=== PATIENT | female | born 1980 | race Caucasian/White ===

== ENCOUNTER 2016-10-17 15:15 | Emergency (ER) | payer SELFPAY ==
--- NOTE | 2016-10-17 17:27 | ED NURSING NOTES ---
Clinical Report - Nurses [facility] [address] [place] [address] 10/17/2016 15:17 Patient: TEMO HYMAN TRIAGE Triage time 1525. Acuity: LEVEL 3. Chief Complaint: NECK PAIN and (states neck pain started on right trapezius area on Thursday--now whole neck is stiff and painful "like a migraine"). 15:25. AYO COMA SCORE: Ayo Coma Scale: 15- eyes open spontaneously (4); best verbal response- oriented x 4 (5); best motor response- obeys commands (6). --15:39 Kerry Banks R.N. 15:25 10/17/16. BP: 123/78. HR: 76. RR: 18. O2 saturation: 100%. Temp: 98 F. Pain level now: 04/14. --15:39 Kerry Banks R.N. Weight: 54.4 kg stated. Height/Length: 62 inches Per Patient. BMI: 22. --15:38 Krery Banks R.N. Medications Took a muscle relaxant of husbands last nightr . --15:35 Kerry Banks R.N. alleve 2 tabs yesterday . --15:35 Kerry Banks R.N. Ice hot topicle (made it worse) . --15:35 Kerry Banks R.N. Allergies Cipro. ("feels like chest is closing up") Codeine.(rash) --15:33 Kerry Banks R.N. History Arrived by private vehicle. Historian: spouse. Accompanied by spouse. No primary care physician. Onset. (thursday). ( c/o worse pain when she ambulates, and states her mouth gets numb when she walks). She has had numbness (has it chronically with carpel tunnel). No history of recent trauma. PAST MEDICAL HX: Last normal menstrual period- 2 weeks. ( Migraines). SURGERY HX: Carpal tunnel surgery. SOCIAL HX: Light tobacco smoker (cigarette)- less than 1/2 a pack per day. Alcohol use; consumes two bottles of wine daily. History of drug use: marijuana. --15:39 Kerry Banks R.N. PROBLEMS: Migraine Headache. Hepatitis C carrier. --15:36 Kerry Banks R.N. Interventions To treatment room. --15:39 Kerry Banks R.N. PHYSICAL ASSESSMENT 15:25. Ambulatory to room. Patient gowned. GENERAL / NEURO / PSYCH: Alert. Oriented X 4. Appears in pain. RESPIRATORY: Respirations not labored. Chest nontender. CVS: Capillary refill less than 2 seconds. GI / : Abdomen soft. BACK: Limited ROM of the neck. Soft tissue tenderness. --15:39 Kerry Banks R.N. NURSING PROGRESS NOTES 15:25. Patient gowned. Head of bed elevated. Reassurance given. Patient identifiers checked. Call light placed in reach. Side rails up. Bed placed in lowest position. Patient ready for evaluation- chart flagged. --15:39 Kerry Banks R.N. 16:47 10/17/2016 Valium (Diazepam) IM 5 mg given. Given in the left ventral gluteus. Allergies verified. --16:52 Kerry Banks R.N. 16:48 10/17/2016 Toradol (Ketorolac Tromethamine) IM 60 mg given. Given in the left ventral gluteus. --16:53 Kerry Banks R.N. 17:22 10/17/16. The patient is calm and resting quietly. Overall patient status is improved- she states feels better. GENERAL / NEURO / PSYCH: Alert. Oriented X 4. RESPIRATORY: No respiratory distress. SKIN: Skin is warm and dry. --17:22 Philly Owusu R.N. 17:20 10/17/16. BP: 113/68. HR: 69. RR: 16. O2 saturation: 98% on room air. Temp: 98.1 F (oral). Pain level now: 08/15. --17:22 Philly Owusu R.N. DISPOSITION / DISCHARGE Departure time: 1738. Condition at departure: improved. No learning barriers present. Discharge instructions provided and reviewed. Reviewed medication(s) information. Prescription(s) given to the patient. Treatments reviewed (heat packs). Reviewed referral to family practice for followup. Work note given (for 2 days). Verbalized understanding. Written instructions provided. The patient was discharged home and accompanied by head strength and conditioning coach. She left the Emergency Department ambulatory and via private vehicle. Transit Manager driving. --17:43 Brenna Oneil R.N. 17:38 10/17/16. BP: 110/67. HR: 78. RR: 18. O2 saturation: 100%. Temp: 98 F. Pain level now: 01/12. --17:43 Brenna Oneil R.N. Locked/Released at 10/17/2016 17:43 by Brenna Oneil R.N.
--- NOTE | 2016-10-17 17:27 | ED CLINICAL REPORT ---
Clinical Report - Physicians/Mid Levels [facility] [address] [place] [address] 10/17/2016 15:17 Patient: TEMO HYMAN Time Seen: 16:20; initial patient contact, initial documentation, patient care assumed. Arrived- By private vehicle. Historian- patient and significant other. HISTORY OF PRESENT ILLNESS Chief Complaint: NECK PAIN. Modifying factors- worsened by rotation of the head to the right or left or neck flexion. Not relieved by anything. Onset- about 5 days ago and it is still present. It was abrupt in onset and has been constant. It is described as being severe and in the area of the left trapezius and left side of the cervical spine. The quality is noted to be "pain". No radiation. No bladder dysfunction, bowel dysfunction, sensory loss or motor loss. Additional history - awoke that morning with spasms and neck pain, and the spasms won't stop. Patient denies an injury but injury to the head or chest. No other injury. Similar symptoms previously: None. Recent medical care: Not recently seen/assessed. REVIEW OF SYSTEMS No fever, headache, sore throat, difficulty breathing or chest pain. No abdominal pain. All systems otherwise negative, except as recorded above. PAST HISTORY See nurses notes. PROBLEMS: Migraine Headache. Hepatitis C carrier. --15:36 Darren, Kerry, RSawN. SOCIAL HISTORY Light tobacco smoker. Regular alcohol use; consumes wine by the [employer]. History of occasional drug use: marijuana. No recent travel. Is a local resident. She lives with spouse. FAMILY HISTORY Negative. ADDITIONAL NOTES The nursing notes have been reviewed with agreement regarding the chief complaint, HPI, ROS, PMH and patient medications and allergies. PHYSICAL EXAM Vital Signs: 10/17/2016 15:25 BP: 123/78. HR: 76. RR: 18. O2 saturation: 100%. Temp: 98 F. Pain level now: 10/10. Have been reviewed as normal and appear to be correct. Appearance: Alert. No acute distress. HEENT: Normal external inspection. Eyes: Pupils equal, round and reactive to light. ENT: Ears normal. Pharynx normal. Neck: Neck tenderness. Abnormal inspection. Painful ROM. Moderate pain in the neck upon turning the head to the right, turning the head to the left, lifting the head, flexing the neck and extending the neck (L side). Moderate muscle spasm of the neck (L side). No vertebral tenderness. Soft tissue tenderness. No lymphadenopathy or meningeal signs. CVS: Normal heart rate and rhythm. Heart sounds normal. Pulses normal. Respiratory: No respiratory distress. Breath sounds normal. Chest nontender. Back: Normal inspection. No tenderness. Painless ROM. Skin: Skin warm and dry. Normal skin color. No rash. Normal skin turgor. Extremities: Extremities exhibit normal ROM. Extremities nontender. Neuro: Oriented X 3. Mood/affect normal. No motor deficit. No sensory deficit. PROGRESS AND PROCEDURES Patient and spouse counseled in person regarding the patient's stable condition and diagnosis. Differential Diagnosis: Other possible considerations: neck sprain, torticollis, meningitis, cervical stenosis, oa. Above considerations are based on history and physical exam. Differential diagnosis was discussed with patient. Disposition: Discharged home in good and improved condition (17:27). Condition: good and stable. CLINICAL IMPRESSION Left-sided spasmodic torticollis INSTRUCTIONS Do not work for two days. Warnings: GENERAL WARNINGS: Return or contact your physician immediately if your condition worsens or changes unexpectedly, if not improving as expected, or if other problems arise. SPECIFICALLY, return if you develop incontinence of urine (loss of bladder control). chest pain, trouble breathing, abdominal pain. Prescription Medications: Flexeril 10 mg: Take 1 orally every 8 hours as needed for muscle spasm. Dispense twenty (20). No refills. Substitution is permissible. Ultram 50 mg tablets: take 1-2 orally every 6 hours as needed for pain. Dispense twenty (20). No refills. Substitution is permissible. Follow-up: Follow up with your doctor in about five days as needed. Call for an appointment. Summary of care provided to patient. Understanding of the discharge instructions verbalized by patient. (Electronically signed by Lilliana Hardin A.R.N.P. 10/17/2016 17:54)
--- NOTE | 2016-10-17 17:27 | ED NURSING NOTES ---
Clinical Report - Nurses [facility] [address] [place] [address] 10/17/2016 15:17 Patient: TEMO HYMAN TRIAGE Triage time 1525. Acuity: LEVEL 3. Chief Complaint: NECK PAIN and (states neck pain started on right trapezius area on Thursday--now whole neck is stiff and painful "like a migraine"). 15:25. AYO COMA SCORE: Ayo Coma Scale: 15- eyes open spontaneously (4); best verbal response- oriented x 4 (5); best motor response- obeys commands (6). --15:39 Kerry Banks R.N. 15:25 10/17/16. BP: 123/78. HR: 76. RR: 18. O2 saturation: 100%. Temp: 98 F. Pain level now: 04/14. --15:39 Kerry Banks R.N. Weight: 54.4 kg stated. Height/Length: 62 inches Per Patient. BMI: 22. --15:38 Kerry Banks R.N. Medications Took a muscle relaxant of husbands last nightr . --15:35 Kerry Banks R.N. alleve 2 tabs yesterday . --15:35 Kerry Banks R.N. Ice hot topicle (made it worse) . --15:35 Kerry Banks R.N. Allergies Cipro. ("feels like chest is closing up") Codeine.(rash) --15:33 Kerry Banks R.N. History Arrived by private vehicle. Historian: spouse. Accompanied by spouse. No primary care physician. Onset. (thursday). ( c/o worse pain when she ambulates, and states her mouth gets numb when she walks). She has had numbness (has it chronically with carpel tunnel). No history of recent trauma. PAST MEDICAL HX: Last normal menstrual period- 2 weeks. ( Migraines). SURGERY HX: Carpal tunnel surgery. SOCIAL HX: Light tobacco smoker (cigarette)- less than 1/2 a pack per day. Alcohol use; consumes two bottles of wine daily. History of drug use: marijuana. --15:39 Kerry Banks R.N. PROBLEMS: Migraine Headache. Hepatitis C carrier. --15:36 Kerry Banks R.N. Interventions To treatment room. --15:39 Kerry Banks R.N. PHYSICAL ASSESSMENT 15:25. Ambulatory to room. Patient gowned. GENERAL / NEURO / PSYCH: Alert. Oriented X 4. Appears in pain. RESPIRATORY: Respirations not labored. Chest nontender. CVS: Capillary refill less than 2 seconds. GI / : Abdomen soft. BACK: Limited ROM of the neck. Soft tissue tenderness. --15:39 Kerry Banks R.N. NURSING PROGRESS NOTES 15:25. Patient gowned. Head of bed elevated. Reassurance given. Patient identifiers checked. Call light placed in reach. Side rails up. Bed placed in lowest position. Patient ready for evaluation- chart flagged. --15:39 Kerry Banks R.N. 16:47 10/17/2016 Valium (Diazepam) IM 5 mg given. Given in the left ventral gluteus. Allergies verified. --16:52 Kerry Banks R.N. 16:48 10/17/2016 Toradol (Ketorolac Tromethamine) IM 60 mg given. Given in the left ventral gluteus. --16:53 Kerry Banks R.N. 17:22 10/17/16. The patient is calm and resting quietly. Overall patient status is improved- she states feels better. GENERAL / NEURO / PSYCH: Alert. Oriented X 4. RESPIRATORY: No respiratory distress. SKIN: Skin is warm and dry. --17:22 Philly Owusu R.N. 17:20 10/17/16. BP: 113/68. HR: 69. RR: 16. O2 saturation: 98% on room air. Temp: 98.1 F (oral). Pain level now: 08/15. --17:22 Philly Owusu R.N. DISPOSITION / DISCHARGE Departure time: 1738. Condition at departure: improved. No learning barriers present. Discharge instructions provided and reviewed. Reviewed medication(s) information. Prescription(s) given to the patient. Treatments reviewed (heat packs). Reviewed referral to family practice for followup. Work note given (for 2 days). Verbalized understanding. Written instructions provided. The patient was discharged home and accompanied by building services technician. She left the Emergency Department ambulatory and via private vehicle. Signals Intelligence Analysis Manager driving. --17:43 Brenna Oneil R.N. 17:38 10/17/16. BP: 110/67. HR: 78. RR: 18. O2 saturation: 100%. Temp: 98 F. Pain level now: 01/12. --17:43 Brenna Oneil R.N. Locked/Released at 10/17/2016 17:43 by Brenna Oneil R.N.
--- NOTE | 2016-10-17 17:28 | ED ORDER SUMMARY ---
..... Patient: TEMO HYMAN OrderSheet [facility] VisitID: [id number] [place] [address] 36y, F Registration Date/Time: 10/17/2016 ORDER SHEET Weight: 54.4 kg (stated) Allergies: Cipro, Codeine GENERAL ORDERS: MEDICATION ORDERS: Valium IM 5 mg (HIGH ALERT MEDICATION, NOW) (16:34 10/17/2016 HBivens A.R.N.P.) (Ack 16:42 DDean R.N.) (16:52 DDean R.N.) Toradol IM 60 mg (NOW) (16:34 10/17/2016 HBivens A.R.N.P.) (Ack 16:42 DDean R.N.) (16:53 DDean R.N.) IV FLUIDS: ORDER SHEET NOTES: [Electronically signed by Brenna Oneil R.N. (17:43 10/17/2016)] [Electronically signed by Lilliana HardinR.N.P. (17:54 10/17/2016)] [Electronically locked/signed by Brenna Oneil R.N. (17:43 10/17/2016)]
--- NOTE | 2016-10-17 17:28 | ED ORDER SUMMARY ---
..... Patient: TEMO HYMAN OrderSheet [facility] VisitID: [id number] [place] [address] 36y, F Registration Date/Time: 10/17/2016 ORDER SHEET Weight: 54.4 kg (stated) Allergies: Cipro, Codeine GENERAL ORDERS: MEDICATION ORDERS: Valium IM 5 mg (HIGH ALERT MEDICATION, NOW) (16:34 10/17/2016 HBivens A.R.N.P.) (Ack 16:42 DDean R.N.) (16:52 DDean R.N.) Toradol IM 60 mg (NOW) (16:34 10/17/2016 HBivens A.R.N.P.) (Ack 16:42 DDean R.N.) (16:53 DDean R.N.) IV FLUIDS: ORDER SHEET NOTES: [Electronically signed by Brenna Oneil R.N. (17:43 10/17/2016)] [Electronically signed by Lilliana HardinR.N.P. (17:54 10/17/2016)] [Electronically locked/signed by Brenna Oneil R.N. (17:43 10/17/2016)]
--- NOTE | 2016-10-17 17:54 | ED DISCHARGE INSTRUCTIONS ---
Patient: TEMO HYMAN General Instructions [facility] VisitID: [id number] [place] [address] 36y, F Registration Date/Time: 10/17/2016 Left-sided spasmodic torticollis INSTRUCTIONS Do not work for two days. Warnings: GENERAL WARNINGS: Return or contact your physician immediately if your condition worsens or changes unexpectedly, if not improving as expected, or if other problems arise. SPECIFICALLY, return if you develop incontinence of urine (loss of bladder control). chest pain, trouble breathing, abdominal pain. Prescription Medications: Flexeril 10 mg: Take 1 orally every 8 hours as needed for muscle spasm. Dispense twenty (20). No refills. Substitution is permissible. Ultram 50 mg tablets: take 1-2 orally every 6 hours as needed for pain. Dispense twenty (20). No refills. Substitution is permissible. Follow-up: Follow up with your doctor in about five days as needed. Call for an appointment. Summary of care provided to patient. Understanding of the discharge instructions verbalized by patient. ADDITIONAL INFORMATION Neck Pain [No Trauma] There are several possible causes of neck pain without injury: You can get a minor ligament sprain or muscle strain from a sudden minor neck movement. Sleeping with your neck in an awkward position can also cause this. Some persons respond to emotional stress by tensing the muscles of their neck, shoulders and upper back. Chronic spasm in these muscles can cause neck pain and sometimes headaches. Gradualwear and tearof the joints in the spine can cause degenerative arthritis.This can be a source of occasional or chronic neck pain. With aging or repeated small injuries to the neck, the spinal disks (the cushions between each spinal bone) may bulge and put pressure on a nearby spinal nerve. This causes tingling, pain or numbness spreading from the neck to the shoulder, arm or hand on one side. Acute neck pain usually gets better in one to two weeks. Neck pain related to disk disease, arthritis in the spinal joints or spinal stenosis (narrowing of the spinal canal) can become chronic and last for months or years. Unless you had a forceful physical injury (for example, a car accident or fall), X-rays are usually not ordered for the initial evaluation of neck pain. If pain continues and does not respond to medical treatment, x-rays and other tests may be performed at a later time. Home Care: Rest and relax the muscles. Use a comfortable pillow that supports the head and keeps the spine in a neutral position. The position of the head should not be tilted forward or backward. A rolled up towel may help for a custom fit. Some persons find relief with heat (hot shower, hot bath or heating pad) and massage, while others prefer cold packs (crushed or cubed ice in a plastic bag, wrapped in a towel) . Try both and use the method that feels best for 20 minutes several times a day. You may use acetaminophen (Tylenol) or ibuprofen (Motrin, Advil) to control pain, unless another medicine was prescribed. [ NOTE : If you have chronic liver or kidney disease or ever had a stomach ulcer or GI bleeding, talk with your doctor before using these medicines.] Follow Up with your physician or this facility if your symptoms do not show signs of improvement after one week. Physical therapy or further tests may be needed. [NOTE: A radiologist will review any X-rays or CT scans that were taken. We will notify you of any new findings that may affect your care.] Get Prompt Medical Attention if any of the following occur: Pain becomes worse or spreads into one or both arms Weakness or numbness in one or both arms Increasing headache Neck swelling, difficulty or painful swallowing Fever of 100.4F (38C) or higher, or as directed by your healthcare provider Torticollis [Child] Acute spasmodic torticollis is a condition of painful muscle spasm in the neck. It usually occurs in children and causes the child to hold its head to one side because it hurts too much to move from that position. This usually is a result of sleeping with the neck in a strained position. The presence of a viral cold may also contribute to this problem. Torticollis usually goes away after a few days. Home Care: Apply heat to the neck muscles with a heating pad or using a hot tub or hot shower. This will help relax the muscles. Gentle massage of the muscles will also help. Support the head/neck with small pillows or rolled up towels when lying down. If a neck brace was given, keep this on all the time until symptoms improve. You may remove it for bathing or applying heat or massage. Use acetaminophen (Tylenol) for fever, fussiness or discomfort. In infants over six months of age, you may use ibuprofen (Children's Motrin) instead of Tylenol. [NOTE: If your child has chronic liver or kidney disease or ever had a stomach ulcer or GI bleeding, talk with your doctor before using these medicines. Aspirin should never be used in anyone under 18 years of age who is ill with a fever. It may cause severe liver damage.] No school or sports until symptoms are all better. Follow Up with your doctor or as advised by our staff, if symptoms are not improving over the next one to two days. Get Prompt Medical Attention if any of the following occur: Increasing neck pain No relief with the medicines prescribed Weakness, numbness or tingling in the arms or legs Trouble swallowing or breathing Loss of control of the bladder or bowels Fever of 100.4F (38C) oral or 101.4F (38.5C) rectal or higher that does not get better with medication Muscle Spasm A MUSCLE SPASM is a prolonged contraction of the muscle fibers. This may be caused by strain or over exertion of the muscle, injury, or metabolic changes. If it goes on long enough the muscle spasm causes pain. Common locations for muscle spasm are the legs (especially at night in older persons), in the neck and back. Home Care: 1) Heat, massage and passive stretching will help relax muscle spasm. 2) When the spasm is in your arm or leg, you may stretch the muscle passively by having someone bend or straighten the joint above or below the muscle until you feel the stretch on the sore muscle. Hold this tension for 5-30 seconds, as tolerated. Release. Rest for one minute. Repeat until the spasm is relieved. 3) You may use acetaminophen (Tylenol) or ibuprofen (Motrin, Advil) to control pain, unless another medicine was prescribed. [ NOTE : If you have chronic liver or kidney disease or ever had a stomach ulcer or GI bleeding, talk with your doctor before using these medicines.] Follow Up with your doctor or this facility if you are not improving within the next 1-2 days. Get Prompt Medical Attention or contact your doctor if any of the following occur: -- Fingers or toes become swollen, cold, blue, numb or tingly -- You develop weakness in the affected arm or leg -- Pain increases and is not controlled by the above measures Cyclobenzaprine Hydrochloride Oral tablet What is this medicine? CYCLOBENZAPRINE (johnnie lopez) is a muscle relaxer. It is used to treat muscle pain, spasms, and stiffness. How should I use this medicine? Take this medicine by mouth with a glass of water. Follow the directions on the prescription label. If this medicine upsets your stomach, take it with food or milk. Take your medicine at regular intervals. Do not take it more often than directed. Talk to your frame cleaner regarding the use of this medicine in children. Special care may be needed. What side effects may I notice from receiving this medicine? Side effects that you should report to your doctor or health dialysis patient care technician as soon as possible: allergic reactions like skin rash, itching or hives, swelling of the face, lips, or tongue chest pain fast heartbeat hallucinations seizures vomiting Side effects that usually do not require medical attention (report to your doctor or health dialysis patient care technician if they continue or are bothersome): headache What may interact with this medicine? Do not take this medicine with any of the following medications: cisapride droperidol flecainide grepafloxacin halofantrine levomethadyl MAOIs like Carbex, Eldepryl, Marplan, Nardil, and Parnate nilotinib pimozide probucol sertindole This medicine may also interact with the following medications: abarelix alcohol contrast dyes dolasetron guanethidine medicines for cancer medicines for depression, anxiety, or psychotic disturbances medicines to treat an irregular heartbeat medicines used for sleep or numbness during surgery or procedure methadone octreotide ondansetron palonosetron phenothiazines like chlorpromazine, mesoridazine, prochlorperazine, thioridazine some medicines for infection like alfuzosin, chloroquine, clarithromycin, levofloxacin, mefloquine, pentamidine, troleandomycin tramadol vardenafil What if I miss a dose? If you miss a dose, take it as soon as you can. If it is almost time for your next dose, take only that dose. Do not take double or extra doses. Where should I keep my medicine? Keep out of the reach of children. Store at room temperature between 15 and 30 degrees C (59 and 86 degrees F). Keep container tightly closed. Throw away any unused medicine after the expiration date. What should I tell my health care provider before I take this medicine? They need to know if you have any of these conditions: heart disease, irregular heartbeat, or previous heart attack liver disease thyroid problem an unusual or allergic reaction to cyclobenzaprine, tricyclic antidepressants, lactose, other medicines, foods, dyes, or preservatives or trying to get breast-feeding What should I watch for while using this medicine? Check with your doctor or health dialysis patient care technician if your condition does not improve within 1 to 3 weeks. You may get drowsy or dizzy when you first start taking the medicine or change doses. Do not drive, use machinery, or do anything that may be dangerous until you know how the medicine affects you. Stand or sit up slowly. Your mouth may get dry. Drinking water, chewing sugarless gum, or sucking on hard candy may help. Tramadol Hydrochloride Oral tablet What is this medicine? TRAMADOL (TRA ma dole) is a pain reliever. It is used to treat moderate to severe pain in adults. How should I use this medicine? Take this medicine by mouth with a full glass of water. Follow the directions on the prescription label. If the medicine upsets your stomach, take it with food or milk. Do not take more medicine than you are told to take. Talk to your frame cleaner regarding the use of this medicine in children. Special care may be needed. What side effects may I notice from receiving this medicine? Side effects that you should report to your doctor or health dialysis patient care technician as soon as possible: allergic reactions like skin rash, itching or hives, swelling of the face, lips, or tongue breathing difficulties, wheezing confusion itching light headedness or fainting spells redness, blistering, peeling or loosening of the skin, including inside the mouth seizures Side effects that usually do not require medical attention (report to your doctor or health dialysis patient care technician if they continue or are bothersome): constipation dizziness drowsiness headache nausea, vomiting What may interact with this medicine? Do not take this medicine with any of the following medications: MAOIs like Carbex, Eldepryl, Marplan, Nardil, and Parnate This medicine may also interact with the following medications: alcohol or medicines that contain alcohol antihistamines benzodiazepines bupropion carbamazepine or oxcarbazepine clozapine cyclobenzaprine digoxin furazolidone linezolid medicines for depression, anxiety, or psychotic disturbances medicines for migraine headache like almotriptan, eletriptan, frovatriptan, naratriptan, rizatriptan, sumatriptan, zolmitriptan medicines for pain like pentazocine, buprenorphine, butorphanol, meperidine, nalbuphine, and propoxyphene medicines for sleep muscle relaxants naltrexone phenobarbital phenothiazines like perphenazine, thioridazine, chlorpromazine, mesoridazine, fluphenazine, prochlorperazine, promazine, and trifluoperazine procarbazine warfarin What if I miss a dose? If you miss a dose, take it as soon as you can. If it is almost time for your next dose, take only that dose. Do not take double or extra doses. Where should I keep my medicine? Keep out of the reach of children. Store at room temperature between 15 and 30 degrees C (59 and 86 degrees F). Keep container tightly closed. Throw away any unused medicine after the expiration date. What should I tell my health care provider before I take this medicine? They need to know if you have any of these conditions: brain tumor depression drug abuse or addiction head injury if you frequently drink alcohol containing drinks kidney disease or trouble passing urine liver disease lung disease, asthma, or breathing problems seizures or epilepsy suicidal thoughts, plans, or attempt; a previous suicide attempt by you or a family member an unusual or allergic reaction to tramadol, codeine, other medicines, foods, dyes, or preservatives or trying to get breast-feeding What should I watch for while using this medicine? Tell your doctor or health dialysis patient care technician if your pain does not go away, if it gets worse, or if you have new or a different type of pain. You may develop tolerance to the medicine. Tolerance means that you will need a higher dose of the medicine for pain relief. Tolerance is normal and is expected if you take this medicine for a long time. Do not suddenly stop taking your medicine because you may develop a severe reaction. Your body becomes used to the medicine. This does NOT mean you are addicted. Addiction is a behavior related to getting and using a drug for a non-medical reason. If you have pain, you have a medical reason to take pain medicine. Your doctor will tell you how much medicine to take. If your doctor wants you to stop the medicine, the dose will be slowly lowered over time to avoid any side effects. You may get drowsy or dizzy. Do not drive, use machinery, or do anything that needs mental alertness until you know how this medicine affects you. Do not stand or sit up quickly, especially if you are an older patient. This reduces the risk of dizzy or fainting spells. Alcohol can increase or decrease the effects of this medicine. Avoid alcoholic drinks. You may have constipation. Try to have a bowel movement at least every 2 to 3 days. If you do not have a bowel movement for 3 days, call your doctor or health dialysis patient care technician. Your mouth may get dry. Chewing sugarless gum or sucking hard candy, and drinking plenty of water may help. Contact your doctor if the problem does not go away or is severe. You have been given the following additional information: Neck Pain, No Trauma Torticollis (Child) Muscle Spasm Cyclobenzaprine Hydrochloride Oral tablet Tramadol Hydrochloride Oral tablet Do not work for two days. (Electronically signed by Lilliana Hardin A.R.N.P. 10/17/2016 17:54)
--- NOTE | 2016-10-17 17:54 | ED MAR SUMMARY ---
..... Medication Administration Record [facility] [address] [place] [address] Patient: TEMO HYMAN Visit ID: [id number] 36y, F Weight: 54.4 kg Height/Length: 62 in BMI: 22 ALLERGIES: Codeine, Cipro Given 16:47 10/17/2016 DarrenKerry martinez, R.N. Medication Administered: VALIUM [IM] (DIAZEPAM), Dose: 5 mg IM. Medication Ordered: Valium IM 5 mg (HIGH ALERT MEDICATION, NOW). Given 16:48 10/17/2016 Kerry Banks, R.N. Medication Administered: TORADOL [IM] (KETOROLAC TROMETHAMINE), Dose: 60 mg IM. Medication Ordered: Toradol IM 60 mg (NOW).
--- NOTE | 2016-10-17 17:54 | ED MED RECONCILIATION SUMMARY ---
Patient: TEMO HYMAN Medication Reconciliation Report [facility] VisitID: [id number] [place] [address] 36y, F Registration Date/Time: 10/17/2016 Weight: 54.4 kg Height/Length: 62 in. BMI: 22.0 ALLERGIES: Cipro, Codeine The patient's Home Medications are listed below: THE FOLLOWING MEDICATIONS NEED TO BE RECONCILED: alleve 2 tabs yesterday Ice hot topicle (made it worse) Took a muscle relaxant of husbands last nightr The source(s) of the original Home Medication information: Not obtained. The following Medications were given to the patient in the Emergency Department: Valium [IM] IM 5 mg, administered: 10/17/2016 4:47:00 PM Toradol [IM] IM 60 mg, administered: 10/17/2016 4:48:00 PM The following Medications were prescribed to the patient: Flexeril 10 mg: Take 1 orally every 8 hours as needed for muscle spasm. Dispense twenty (20). No refills. Substitution is permissible. -- Lilliana Hardin, A.R.N.P. Ultram 50 mg tablets: take 1-2 orally every 6 hours as needed for pain. Dispense twenty (20). No refills. Substitution is permissible. -- Lilliana Hardin A.R.N.P.
--- NOTE | 2016-10-17 17:54 | ED MAR SUMMARY ---
..... Medication Administration Record [facility] [address] [place] [address] Patient: TEMO HYMAN Visit ID: [id number] 36y, F Weight: 54.4 kg Height/Length: 62 in BMI: 22 ALLERGIES: Codeine, Cipro Given 16:47 10/17/2016 DarrenKerry martinez, R.N. Medication Administered: VALIUM [IM] (DIAZEPAM), Dose: 5 mg IM. Medication Ordered: Valium IM 5 mg (HIGH ALERT MEDICATION, NOW). Given 16:48 10/17/2016 Kerry Banks, R.N. Medication Administered: TORADOL [IM] (KETOROLAC TROMETHAMINE), Dose: 60 mg IM. Medication Ordered: Toradol IM 60 mg (NOW).
--- NOTE | 2016-10-17 17:54 | ED MED RECONCILIATION SUMMARY ---
Patient: TEMO HYMAN Medication Reconciliation Report [facility] VisitID: [id number] [place] [address] 36y, F Registration Date/Time: 10/17/2016 Weight: 54.4 kg Height/Length: 62 in. BMI: 22.0 ALLERGIES: Cipro, Codeine The patient's Home Medications are listed below: THE FOLLOWING MEDICATIONS NEED TO BE RECONCILED: alleve 2 tabs yesterday Ice hot topicle (made it worse) Took a muscle relaxant of husbands last nightr The source(s) of the original Home Medication information: Not obtained. The following Medications were given to the patient in the Emergency Department: Valium [IM] IM 5 mg, administered: 10/17/2016 4:47:00 PM Toradol [IM] IM 60 mg, administered: 10/17/2016 4:48:00 PM The following Medications were prescribed to the patient: Flexeril 10 mg: Take 1 orally every 8 hours as needed for muscle spasm. Dispense twenty (20). No refills. Substitution is permissible. -- Lilliana Hardin, A.R.N.P. Ultram 50 mg tablets: take 1-2 orally every 6 hours as needed for pain. Dispense twenty (20). No refills. Substitution is permissible. -- Lilliana Hardin A.R.N.P.
== END 2016-10-17 17:38 | disposition home or self-care (01) ==
LOC: ED SRH 15:15
DX: G24.3 Spasmodic torticollis (principal); F17.210 Nicotine dependence, cigarettes, uncomplicated; Z88.1 Allergy status to other antibiotic agents; Z88.5 Allergy status to narcotic agent